=== PATIENT | male | born 1995 | race Hispanic/Latino ===

== ENCOUNTER 2021-05-02 14:48 | Emergency (ER) | payer SELFPAY ==
--- NOTE | 2021-05-02 16:11 | Emergency Department Report ---
ED Psych HPI - General Chief Complaint: Psych Stated Complaint: SUICIDAL IDEATION Time Seen by Provider: 05/02/21 15:28 Source: patient, EMS Mode of arrival: Ambulatory - History of Present Illness Initial Comments: Patient is 25 years old male, unknown past psychiatric history. Patient presented to the ER stating that he is hearing voices asking him to kill himself. Patient does not have a plan. He denied homicidal ideation. No visual hallucination. MD Complaint: suicidal ideation - Related Data Previous Rx's Medication Instructions Recorded Last Taken Type Doxepin [SINEquan] 10 mg PO QHS #30 capsule 05/04/21 Unknown Rx FLUoxetine [PROzac] 10 mg PO QDAY #30 tablet 05/04/21 Unknown Rx OLANZapine [Olanzapine] 10 mg PO DAILY #30 05/04/21 Unknown Rx Allergies Allergy/AdvReac Type Severity Reaction Status Date / Time No Known Allergies Allergy Unverified 05/02/21 14:49 ED Review of Systems ROS: Stated complaint: SUICIDAL IDEATION Other details as noted in HPI Comment: All other systems reviewed and negative Constitutional: denies: chills, fever Respiratory: denies: cough, shortness of breath, SOB with exertion Cardiovascular: denies: chest pain, palpitations Gastrointestinal: denies: abdominal pain, nausea, vomiting Musculoskeletal: denies: back pain Neurological: denies: headache, weakness ED Past Medical Hx - Medications Home Medications: Home Medications Medication Instructions Recorded Confirmed Last Taken Type Doxepin [SINEquan] 10 mg PO QHS #30 capsule 05/04/21 Unknown Rx FLUoxetine [PROzac] 10 mg PO QDAY #30 tablet 05/04/21 Unknown Rx OLANZapine [Olanzapine] 10 mg PO DAILY #30 05/04/21 Unknown Rx ED Physical Exam - General Limitations: No Limitations General appearance: alert, in no apparent distress - Head Head exam: Present: atraumatic, normocephalic, normal inspection - Eye Eye exam: Present: normal appearance - ENT ENT exam: Present: normal exam, normal orophraynx, mucous membranes moist - Neck Neck exam: Present: normal inspection, full ROM. Absent: tenderness, me ningismus - Respiratory Respiratory exam: Present: normal lung sounds bilaterally - Cardiovascular Cardiovascular Exam: Present: regular rate, normal rhythm, normal heart sounds - GI/Abdominal GI/Abdominal exam: Present: soft, normal bowel sounds. Absent: distended, tenderness, guarding, rebound, rigid, organomegaly, mass, bruit, pulsatile mass, hernia - Extremities Exam Extremities exam: Present: normal inspection, full ROM, normal capillary refill. Absent: tenderness - Back Exam Back exam: Present: normal inspection, full ROM. Absent: CVA tenderness (R), CVA tenderness (L) - Neurological Exam Neurological exam: Present: alert, oriented X3, CN II-XII intact, normal gait. Absent: motor sensory deficit, reflexes normal - Psychiatric Psychiatric exam: Present: suicidal ideation. Absent: depressed, agitated, anxious, flat affect, manic, homicidal ideation - Skin Skin exam: Present: warm, intact, normal color ED Course Vital Signs 05/02/21 05/02/21 05/02/21 14:49 14:50 20:11 Temperature 98.6 F 98.0 F Pulse Rate 108 H 99 H Respiratory 18 14 18 Rate Blood Pressure 158/84 160/80 [Left] O2 Sat by Pulse 98 98 97 Oximetry 05/03/21 05/03/21 09:03 11:18 Temperature 97.8 F Pulse Rate 98 H Respiratory 18 18 Rate Blood Pressure 113/77 [Left] O2 Sat by Pulse 98 98 Oximetry ED Medical Decision Making - Lab Data Result diagrams: 05/02/21 15:46 05/02/21 15:46 - Medical Decision Making Patient is 25 years old male, unknown past psychiatric history. Patient presented to the ER stating that he is hearing voices asking him to kill himself. Patient does not have a plan. He denied homicidal ideation. No visual hallucination. Labs reviewed and is unremarkable. Patient is medically cleared to be evaluated by psychiatric team. Critical care attestation.: If time is entered above; I have spent that time in minutes in the direct care of this critically ill patient, excluding procedure time. ED Disposition Clinical Impression: Suicidal ideation Disposition: HOME / SELF CARE / HOMELESS Is pt being admited?: No Condition: Stable Instructions: Suicidal Feelings: How to Help Yourself Additional Instructions: Professional and Agency Contacts To help [facility] (29/09) [place] Crisis Line: Suicide Prevention Line: Crisis Text Line: Text START to 277055 Emergency: 911 Outpatient COMMUNITY Behavioral Health Resources: [place]: [facility] [address] [place], [place] [address] [place]: [facility] [address] [place] [address] Thursday thru Thursday - 8am - 5pm Call to schedule an assessment for mental health and substance abuse programs [place]: [facility] Address: [address] [place] [address] Thursday thru Thursday- 7am-2pm [facility] Address: [address] [place] [address] Thursday thru Thursday: 8:30AM-5PM Prescriptions: Doxepin [SINEquan] 10 mg PO QHS #30 capsule OLANZapine [Olanzapine] 10 mg PO DAILY #30 FLUoxetine [PROzac] 10 mg PO QDAY #30 tablet Referrals: PRIMARY CARE, [Primary Care Provider] - 3-5 Days
[2021-05-02 16:31] LABS: Bilirubin,Urine NEG (Negative); Blood,Urine NEG (Negative); Color,Urine Yellow (Yellow); Mucus,Urine 1+ /HPF; Sperm,Urine FEW /HPF (NP); Urobilinogen,Urine < 2.0 mg/dL (<2.0); WBC,Urine < 1.0 /HPF (0.0-6.0)
[2021-05-02 16:53] LABS: Amphetamine Screen,Urine Negative; Benzodiazepines Screen,Urine Negative; Cannabinoid Screen,Urine Negative; Cocaine Screen,Urine Negative; Methadone Screen,Urine Negative; Opiate Screen,Urine Negative
[2021-05-02 17:06] LABS: Basophils % (Auto) 0.5 % (0.0-1.8); Eosinophils # (Auto) 0.1 K/mm3 (0.0-0.4); Hemoglobin 13.8 gm/dl (11.8-15.2); Lymphocytes # (Auto) 2.5 K/mm3 (1.2-5.4); Mean Corpuscular HGB Conc 34 % (32-34); Mean Corpuscular Volume 79 fl (84-94); Monocytes # (Auto) 0.4 K/mm3 (0.0-0.8); Monocytes % (Auto) 7.4 % (0.0-7.3); Platelet Count 256 K/mm3 (140-440); Red Blood Count 5.22 M/mm3 (3.65-5.03); Red Cell Distribution Width 15.2 % (13.2-15.2)
[2021-05-02 17:19] LABS: BUN/Creatinine Ratio 13; Blood Urea Nitrogen 13 mg/dL (9-20); Calcium 9.6 mg/dL (8.4-10.2); Hemolysis Index 11
--- NOTE | 2021-05-03 08:05 | Emergency Department Report ---
Blank Doc - Documentation Documentation: Patient had no events throughout the course of the night. He is resting this morning. Patient is still having thoughts of self-harm. We are awaiting a psychiatric disposition.
--- NOTE | 2021-05-03 09:43 | Consultation ---
History of Present Illness - Reason for Consult Consult date: 05/03/21 Reason for consult: SI, hallucinations - History of Present Psychiatric Illness The patient was seen today. An senior support analyst was used. The patient is [place] speaking. He is confused. He appears to be responding to internal stimuli, although he denies hallucinations when asked. The senior support analyst says he's not making a lot of sense. He is talking about the government and other stuff the senior support analyst couldn't make out. He says he came in for a headache. The patient denies SI/HI. When asked was he suicidal, he paused then answered before the senior support analyst could respond, "no." He says "I gotta fill out applications." The patient says he has a history schizophrenic. PAST PSYCHIATRIC HISTORY: Unable to assess PAST MEDICAL HISTORY: None reported or document Family Psychiatric History: None reported or documented SOCIAL HISTORY Unable to assess REVIEW OF SYSTEMS Unable to assess MENTAL STATUS EXAMINATION Unable to assess Assessment and Plan (1) Schizophrenia Treatment Plan 1013 Olanzapine 5mg po daily Prozac 10mg po daily Doxepoin 10mg po qhs Medical: per primary Disposition: Recommend acute psychiatric inpatient treatment Will follow. Thanks Case staffed with Dr. Vasquez Medications and Allergies Allergies Allergy/AdvReac Type Severity Reaction Status Date / Time No Known Allergies Allergy Unverified 05/02/21 14:49 Mental Status Exam - Vital signs Last Vital Signs Temp 98.0 F 05/02/21 20:11 Pulse 99 H 05/02/21 20:11 Resp 18 05/03/21 09:03 BP 160/80 05/02/21 20:11 Pulse Ox 98 05/03/21 09:03 Results Result Diagrams: 05/02/21 15:46 05/02/21 15:46 Abnormal lab results 05/02/21 05/02/21 05/02/21 Range/Units 15:46 15:46 15:46 RBC 5.22 H (3.65-5.03) M/mm3 MCV 79 L (84-94) fl MCH 27 L (28-32) pg Lymph % (Auto) 45.0 H (13.4-35.0) % [place] % (Auto) 7.4 H (0.0-7.3) % Salicylates < 0.3 L (2.8-20.0) mg/dL Acetaminophen 5.0 L (10.0-30.0) ug/mL All other labs normal.
[2021-05-03] MEDS: FLUoxetine 10 MG TAB PO SCH (11:02)
[2021-05-03 11:21] VITALS: BP 113/77
[2021-05-03] MEDS ORDERED: DOXEPIN 10 MG CAP PO SCH (22:00)
[2021-05-04] MEDS: FLUoxetine 10 MG TAB PO SCH (10:28)
--- NOTE | 2021-05-04 10:53 | Progress Note ---
Subjective - Reason for Consult Consult date: 05/04/21 Reason for consult: psychosis - Chief Complaint Chief complaint: The patient was seen today. A grid inspector is used. His thoughts are much better today. The patient says he feels fine. He is asking to go home. He says he has to work today at [employer] He denies SI/HI or hallucinations of any kind. The patient says the medications made him feel better. Discussed with the patient his need to continue the medications on an outpatient basis. He agrees that he would. REVIEW OF SYSTEMS Constitutional: Negative for weight loss ENT: Negative for stridor Respiratory: Negative for cough or hemoptysis All other systems reviewed and are negative MENTAL STATUS EXAMINATION General Appearance and Behavior: Age appropriate, good hygiene, wearing appropri ate clothes. cooperative Cooperation: Cooperative, guarded Psychomotor Behavior: Psychomotor normal Mood: "ok" Affect and affective range: congruent with stated mood Thought Process: goal directed Thought Content: Reality oriented Speech: Normal tone and pace Suicidal Ideation: Denies Homicidal Ideation: Denies Hallucinations: Denies Delusions: None elicited Impulse Control: Limited Insight and Judgment: Limited insight and fair judgment Memory: Limited Attention: distracted Orientation: a/o x 3 Assessment and Plan (1) Schizophrenia Treatment Plan d/c 1013 Olanzapine 5mg po daily Prozac 10mg po daily Doxepin 10mg po qhs Medical: per primary Disposition: Do not recommend acute psychiatric inpatient treatment The manager community relations to give the patient all necessary outpatient resources The patient to follow in 7 to 14 days with outpatient provider Will sign off. Thanks Case staffed with Dr. Vasquez Mental Status Exam - Vital signs Last Vital Signs Temp 97.8 F 05/03/21 11:18 Pulse 98 H 05/03/21 11:18 Resp 18 05/03/21 11:18 BP 113/77 05/03/21 11:18 Pulse Ox 98 05/03/21 11:18
--- NOTE | 2021-05-04 11:17 | Event Note ---
Date: 05/04/21 vss , no distress , no events over night , assessed by [facility] , d/c 1013 , dishcarge with meds and follow up OP
== END 2021-05-03 11:20 | disposition home or self-care (01) ==
LOC: ED 14:48
DX: R45.851 Suicidal ideations (principal); Z20.822 Contact with and (suspected) exposure to COVID-19
CPT/HCPCS: 36415; 80048; 80307; 81001; 85025; 99284; U0003; 80320; G0480